=== PATIENT | female | born 1960 | race Caucasian/White ===

== ENCOUNTER 2017-09-28 17:22 | Emergency (ER) | payer OTHER ==
[~2017-09-28] VITALS: Ht 154.9 cm; Wt 77.2 kg
[~2017-09-28 17:22] MED LIST: LISI5TAB18 PO; METF850T PO
[2017-09-28 17:31] VITALS: BP 131/76
[2017-09-28] MEDS ORDERED: KETOROLAC 60 MG/2 ML VIAL IM ONE (18:05)
[2017-09-28 20:42] VITALS: BP 122/70
== END 2017-09-28 20:42 | disposition home or self-care (01) ==
LOC: MED 17:22
DX: M79.661 Pain in right lower leg (principal)
CPT/HCPCS: 73590; 93971; 96372; 99284; J1885; Q0092

== ENCOUNTER 2018-07-10 14:25 | Observation (INO) | payer BC, OTHER ==
[~2018-07-10] VITALS: Ht 162.6 cm; Wt 77.1 kg
--- NOTE | 2018-07-10 14:36 | NUR ---
PT TO ER BED 9
[2018-07-10 14:40] VITALS: BP 141/68
--- NOTE | 2018-07-10 14:58 | NUR ---
PATIENT PRESENTS TO ED WITH ACCOMPANIED BY SPOUSE C/O INTERMITTENT PALPITATION AND GENERALIZED WEAKNESS X TODAY ADDS HAS BEEN FEELING ANXIOUS DENIES PAIN, DENIES SOB, DENIES N/V/D . SKIN IS PINK/WARM/DRY; AAOX4 WITH EVEN AND STEADY GAIT; LUNGS CLEAR BL; HR EVEN AND REGULAR; PT DENIES ANY FEVER, SOB, OR COUGH AT THIS TIME; PATIENT STATES PAIN OF 0/10 AT THIS TIME; VSS; PATIENT POSITIONED FOR COMFORT; HOB ELEVATED; BEDRAILS UP X2; BED DOWN. ER MD MADE AWARE OF PT STATUS.
[2018-07-10] MEDS ORDERED: KETOROLAC 30 MG/ML VIAL IVP ONE (15:05)
[2018-07-10] MEDS ORDERED: NACL 0.9% 1,000 ML IV ONE (15:05)
[2018-07-10] MEDS ORDERED: LORazepam 2 MG/ML VIAL IVP ONE (15:05)
[2018-07-10] MEDS ORDERED: METOCLOPRAMIDE 10 MG/2 ML INJ VIAL IVP ONE (15:05)
--- NOTE | 2018-07-10 15:13 | NUR ---
CXR AT BEDSIDE
[2018-07-10 15:44] LABS: BASOPHILS % (AUTO) 0.6 % (0.0-2.0); EOSINOPHILS # (AUTO) 0.1 K/uL (0-0.4); HEMATOCRIT 41.3 % (36-48); HEMOGLOBIN 14.3 g/dL (12.0-16.0); LYMPHOCYTES # (AUTO) 1.9 K/uL (2.5-16.5); LYMPHOCYTES % (AUTO) 29.7 % (20.5-51.1); MEAN CORPUSCULAR HEMOGLOBIN 31 pg (27-31); MEAN CORPUSCULAR HGB CONC 35 g/dL (33-37); MEAN CORPUSCULAR VOLUME 90.3 fL (80-94); MONOCYTES # (AUTO) 0.4 K/uL (0.8-1.0); MONOCYTES % (AUTO) 5.8 % (1.7-9.3); NEUTROPHILS # (AUTO) 3.9 K/uL (1.8-7.7); NEUTROPHILS % (AUTO) 62.9 % (42.2-75.2); PLATELET COUNT (AUTO) 206 K/uL (140-450); RED BLOOD CELL COUNT(AUTO) 4.58 MIL/uL (4.20-5.40); WHITE BLOOD COUNT (AUTO) 6.3 K/uL (4.8-10.8)
--- NOTE | 2018-07-10 15:56 | NUR ---
IV 20 GA RT HAND DONE, BLOOD SENT TO LAB, IVP/IVF GIVEN-NADR AT THIS TIME. FAMILY AT BEDSIDE, NSR W/O ECT, VSS, PT STABLE AT THIS TIME.
[2018-07-10 15:59] LABS: ANION GAP 11.4 (8-16); CARBON DIOXIDE 27.2 mmol/L (21-32); CREATININE 0.9 mg/dL (0.6-1.3); POTASSIUM 3.6 mmol/L (3.5-5.1)
[2018-07-10 16:04] LABS: ALBUMIN 3.4 g/dL (3.4-5.0); TOTAL BILIRUBIN 0.3 mg/dL (0.0-1.0)
[2018-07-10 16:05] LABS: BILIRUBIN,URINE NEGATIVE (NEGATIVE); BLOOD, URINE TRACE-L (NEGATIVE); COLOR,URINE YELLOW (YELLOW); LEUKOCYTE ESTERASE ,URINE 1+ (NEGATIVE); NITRITE, URINE NEGATIVE (NEGATIVE); UGLUCOSE 2+ (NEGATIVE)
[2018-07-10 16:07] LABS: APPEARANCE,URINE HAZY (CLEAR)
[2018-07-10 16:09] LABS: BARBITURATE, URINE NEG. ng/ml (NEG <=200); BENZODIAZEPINE, URINE NEG. ng/mL (NEG <=200); CANNABINOID, URINE NEG. ng/mL (NEG <=50); COCAINE, URINE NEG. ng/mL (NEG <=300); OPIATE, URINE NEG. ng/mL (NEG <=2000); PHENCYCLIDINE SCREEN,URINE NEG. ng/mL (NEG <=25)
[2018-07-10 16:16] LABS: PROTHROMBIN TIME 9.3 secs (10.8-13.4)
[2018-07-10 16:19] LABS: RBC,URINE 0-5 /HPF (0-5)
--- NOTE | 2018-07-10 16:30 | NUR ---
NO SOB OR ACUTE RESPIRATORY DISTTRESS NOTED. PT DENIES CHEST PAIN, DIZZINESS. DENIES NAUSEA, VOMITING. AMBULATED TO RESTROOM.
--- NOTE | 2018-07-10 16:40 | NUR ---
AMBULATED TO ROOM
[2018-07-10] MEDS ORDERED: DEXTROSE 50% 50 ML SYR IVP PRN ×2 (18:05→19:35)
[2018-07-10] MEDS ORDERED: HYDROcodone/APAP 5/325 MG 1 TAB TAB PO PRN (18:05)
[2018-07-10] MEDS ORDERED: MORPHINE SULFATE 2 MG/ML SYR IVP PRN (18:05)
[2018-07-10] MEDS ORDERED: INSULIN LISPRO SLIDING SCALE 100 UNITS/ML VIAL SUBQ PRN (18:05)
[2018-07-10] MEDS ORDERED: ONDANSETRON 4 MG/2 ML VIAL IVP PRN (18:05)
[2018-07-10] MEDS ORDERED: ZOLPIDEM 5 MG TAB PO PRN ×2 (18:05→19:45)
[2018-07-10] MEDS ORDERED: LORazepam 2 MG/ML VIAL IVP PRN (18:05)
[2018-07-10] MEDS ORDERED: ALUMINUM HYD/MAG/SIMETHICONE 30 ML UDC PO PRN (18:05)
[2018-07-10] MEDS ORDERED: NITROGLYCERIN 0.4 MG TAB SL PRN (18:05)
[2018-07-10] MEDS ORDERED: ACETAMINOPHEN 325 MG TAB PO PRN (18:05)
--- NOTE | 2018-07-10 18:18 | NUR ---
PT APPEARS TO BE RELAXED, RESTING IN BED. DENIES ANY NAUSEA OR VOMITING. DENIES ANY CHEST PAIN OR SOB. VS WNL.
--- NOTE | 2018-07-10 18:19 | NUR ---
Patient will be admitted to care of Dr. Hicks. Admited to Tele unit. Will go to room 105B. Belongings list completed.
--- NOTE | 2018-07-10 18:59 | NUR ---
PT TRANSFERRED TO TELE UNIT VIA GURNEY TO ROOM 105B ON STABLE CONDITION. BELONGINGES TAKEN TO THE ROOM WITH PATIENT. REPORT GIVEN TO CHARGE NURSE NONI.
--- NOTE | 2018-07-10 19:30 | NUR ---
RECEIVED PT FROM NONI CESAR PT S[place] SPEAKER AAOX4 AMBULATORY IV ON LEFT AC INFUSING WELL ON TELMETRY SR MRSA NARES SCRREN TAKEN AND SENT TO LAB PT IS ORIENTED TO THE FLOOR CALL LIGHT WITHIN REACH
--- NOTE | 2018-07-10 19:45 | NUR ---
DR GORDON IN HERE AND SEE THE PT
[2018-07-10] MEDS ORDERED: MAG SULF 2000 MG/WATER PREMIX 50 ML IV PRN (19:50)
[2018-07-10 20:00] VITALS: BP 107/62
[2018-07-10] MEDS ORDERED: PNEUMOCOCCAL VACCINE 23 MCG/0.5 ML VIAL IMVAC SCH (20:40)
[2018-07-10] MEDS: BLOOD GLUCOSE MONITORING 1 DEV DEV FS SCH (21:00)
[2018-07-10] MEDS ORDERED: SIMVASTATIN 20 MG TAB PO SCH (21:00)
[2018-07-10] MEDS ORDERED: BLOOD GLUCOSE MONITORING 1 DEV DEV FS SCH (21:00)
[2018-07-10] MEDS: METOPROLOL 25 MG TAB PO SCH (21:00)
--- NOTE | 2018-07-10 21:00 | NUR ---
DR KATHERINE Nam IS HERE AND SEE THE PT ORDERS TO FOLLOW
[2018-07-10] MEDS: INSULIN LISPRO SLIDING SCALE 100 UNITS/ML VIAL SUBQ PRN (22:03)
[2018-07-10 23:50] LABS: CREATINE KINASE MB 0.7 ng/mL (0-3.6)
[2018-07-11] VITALS: BP 90/48
--- NOTE | 2018-07-11 | NUR ---
PT SLEEPING WELL NOT DISTRESS NOTED NOT SISGNS OF PAIN, ON TELEMETRY SB
--- NOTE | 2018-07-11 03:00 | NUR ---
PT IS ASSISTED TO THE RESTROOM VOIDING WELL DENIES ANY PAIN ON TELEMETRY SB
[2018-07-11 04:00] VITALS: BP 103/56
--- NOTE | 2018-07-11 05:18 | NUR ---
SPONGE BATH GIVEN LINEN CHANGED DENIES ANY CHEST PAIN OR DISCOMFORT
[2018-07-11] MEDS: BLOOD GLUCOSE MONITORING 1 DEV DEV FS SCH (07:02)
[2018-07-11] MEDS: INSULIN LISPRO SLIDING SCALE 100 UNITS/ML VIAL SUBQ PRN (07:02)
--- NOTE | 2018-07-11 07:02 | NUR ---
BLOOD GLUCOSE TEST 158 COVERAGE WITH 2 UNIST SUBQ HUMALOG FOLLOW PROTOCOL
--- NOTE | 2018-07-11 07:15 | NUR ---
REPORT RECEIVED FROM FREELANCE DIGITAL PROJECT MANAGER NURSE MERARI URIBE SLEEPING QUIETLY IN NAD,RESP EVEN UNLABORED ON RA, SKIN WARM DRY COLOR WNL, AROUSES EASILY, OX4, SPEAKS CLEARLY, DENIES PAIN OR DISCOMFORT, POC REVIEWED, ALL SAFETY MEASURES IN PLACE, NO IMMEDIATE NEEDS AT THIS TIME, WILL CONTINUE TO MONITOR.
--- NOTE | 2018-07-11 08:25 | NUR ---
PATIENT HAS BEEN SCREENED AND CATEGORIZED MODERATE NUTRITION RISK. PATIENT WILL BE SEEN WITHIN 3-5 DAYS OF ADMISSION. 07/13/18[address]
[2018-07-11 08:40] LABS: ALBUMIN 2.9 g/dL (3.4-5.0); ANION GAP 7.7 (8-16); CARBON DIOXIDE 31.3 mmol/L (21-32); CREATININE 0.8 mg/dL (0.6-1.3); TOTAL BILIRUBIN 0.6 mg/dL (0.0-1.0)
[2018-07-11] MEDS ORDERED: LISINOPRIL 5 MG TAB PO SCH (09:00)
[2018-07-11] MEDS: METOPROLOL 25 MG TAB PO SCH (09:00)
[2018-07-11] MEDS ORDERED: ENOXAPARIN 40 MG/0.4 ML SYR SUBQ SCH (09:00)
[2018-07-11] MEDS ORDERED: MENTHOL/METHYL 10%-15% 114 GM TUBE TP SCH (09:00)
[2018-07-11] MEDS ORDERED: metFORMIN 850 MG TAB PO SCH (09:00)
[2018-07-11] MEDS ORDERED: ASPIRIN 81 MG TAB.CHEW PO SCH (09:00)
[2018-07-11] MEDS ORDERED: NAPROXEN 500 MG TAB PO SCH (09:00)
[2018-07-11] MEDS ORDERED: NAPR-1717 PO (09:22)
--- NOTE | 2018-07-11 10:09 | NUR ---
FLU AND PNEUMO VACCINES GIVEN PER PT'S REQUEST AND ORDER.
--- NOTE | 2018-07-11 10:20 | NUR ---
DC INSTRUCTION AND RX INFO GIVEN AND EXPLAINED TO PT AND DAUGHTER, PT OK'D DAUGHTER TO TRANSLATE, PT AND DAUGHTER VERBALIZED FULL UNDERSTANDING, IV DC'D, CATH TIP INTACT, NO REACTIONS NOTED FROM VACC, PT UP OUT OF BED AMBULATES WITH STEADY GAIT, DC HOME NOW WITH DAUGHTERS.
[2018-07-11 12:00] VITALS: BP 114/59
[2018-07-12] MEDS ORDERED: INFLUENZA VIRUS VACCINE QUAD 0.5 ML SYR IMVAC PRN (09:00)
== END 2018-07-11 10:20 | disposition home or self-care (01) ==
LOC: MED 14:25 → MTU 18:05
PROVIDERS: ADMIT Hospitalist; ATTEND Hospitalist
DX: R07.89 Other chest pain (principal); I10 Essential (primary) hypertension; E78.5 Hyperlipidemia, unspecified; R00.2 Palpitations; R42 Dizziness and giddiness; R55 Syncope and collapse; R73.03 Prediabetes; G47.00 Insomnia, unspecified; F43.9 Reaction to severe stress, unspecified; M79.18 Myalgia, other site; Z23 Encounter for immunization
CPT/HCPCS: 36415; 71045; 80053; 80305; 81001; 82550; 82553; 82948; 83036; 83735; 83880; 84443; 84484; 85025; 85379; 85610; 85730; 87081; 87086; 90471; 90472; 90686; 90732; 93005; 96361; 96372; 96374; 96375; 99285; G0378; J1650; J1815; J1885; J2060; J2765; Q0092; 99284

== ENCOUNTER 2019-03-14 17:53 | Emergency (ER) | payer BC, OTHER ==
[~2019-03-14] VITALS: Ht 157.5 cm; Wt 69.4 kg
[~2019-03-14 17:53] MED LIST changes: +NAPR-1717 PO
[2019-03-14 18:16] VITALS: BP 123/76
--- NOTE | 2019-03-14 18:21 | NUR ---
PT TO [facility]. VS WNL. PT ALERT AND AWAKE
--- NOTE | 2019-03-14 19:34 | NUR ---
PT AMBULATED TO BED 8
[2019-03-14 19:39] VITALS: BP 113/64
--- NOTE | 2019-03-14 19:39 | NUR ---
58 Y/O F PRESENTS TO ED WITH C/O SUDDEN ONSET OF NECK PAIN X3 DAYS. PT DENIES ACCIDENT OR INJURY. 8/10 PAIN, ACHING. NON-RADITING.PT SELF MEDICATED WITH IBUPROFEN, NO RELIEF OF SYMPTOMS. +FULL ROM TO NECK. ERMD AWARE OF PT STATUS. WILL CONTINUE TO MONITOR.
--- NOTE | 2019-03-14 21:30 | NUR ---
Patient discharged with v/s stable. Written and verbal after care instructions given and explained. Patient alert, oriented and verbalized understanding of instructions. Ambulatory with steady gait. All questions addressed prior to discharge. ID band removed. Patient advised to follow up with PMD. Rx of valium and naprosyn given. Patient educated on indication of medication including possible reaction and side effects. Opportunity to ask questions provided and answered.
== END 2019-03-14 21:30 | disposition home or self-care (01) ==
LOC: MED 17:53
DX: S16.1XXA Strain of muscle, fascia and tendon at neck level, initial encounter (principal); I10 Essential (primary) hypertension; E11.9 Type 2 diabetes mellitus without complications; Z79.899 Other long term (current) drug therapy; Z90.49 Acquired absence of other specified parts of digestive tract; Z79.84 Long term (current) use of oral hypoglycemic drugs
CPT/HCPCS: 99283

== ENCOUNTER 2020-01-10 01:34 | Emergency (ER) | payer SELFPAY ==
[~2020-01-10] VITALS: Ht 154.9 cm; Wt 64.9 kg
[2020-01-10 01:39] VITALS: BP 120/77
--- NOTE | 2020-01-10 01:41 | NUR ---
ambulated to bed 7 with steady gait Addendum: 01/10/20 at 0142 by [facility] room 6
--- NOTE | 2020-01-10 01:53 | NUR ---
Dr. Castellanos at bedside.
[2020-01-10] MEDS ORDERED: predniSONE 20 MG TAB PO ONE (02:00)
[2020-01-10] MEDS ORDERED: diphenhydrAMINE 50 MG CAP PO ONE (02:00)
--- NOTE | 2020-01-10 02:12 | NUR ---
PT DEVELOPED A RASH TO HER BODY X 2 DAYS AGO. PT HAS SCATTERED RED DOTS TO HER SKIN, ALSO C/O ITCHING. SKIN INTACT, NO WELTS, BLISTERS, OR SWELLING NOTED. AFEBRILE, NO SOB OR COUGH, NO N/V/D. PT UNAWARE OF WHAT CAUSED HER SYSTEMS. BED IN LOWEST POSITION AND SIDERAIL UP X 1. NKA HX - DM, HTN, HIGH CHOLESTEROL
[2020-01-10 02:35] VITALS: BP 120/77
--- NOTE | 2020-01-10 02:35 | NUR ---
Patient discharged with v/s stable. Written and verbal after care instructions given and explained. Patient alert, oriented and verbalized understanding of instructions. Ambulatory with steady gait. All questions addressed prior to discharge. ID band removed. Patient advised to follow up with PMD. Rx of DIPHENHYDRAMINE AND PREDNISONE given. Patient educated on indication of medication including possible reaction and side effects. Opportunity to ask questions provided and answered.
== END 2020-01-10 02:35 | disposition home or self-care (01) ==
LOC: MED 01:34
DX: L50.9 Urticaria, unspecified (principal); E11.9 Type 2 diabetes mellitus without complications; I10 Essential (primary) hypertension; Z79.84 Long term (current) use of oral hypoglycemic drugs; Z79.899 Other long term (current) drug therapy
CPT/HCPCS: 99283; J7512; Q0163

== ENCOUNTER 2020-01-20 13:39 | Emergency (ER) | payer OTHER ==
[~2020-01-20] VITALS: Ht 162.6 cm; Wt 65.8 kg
[2020-01-20 13:45] VITALS: BP 105/66
[2020-01-20] MEDS ORDERED: NACL 0.9% 1,000 ML IV SCH (13:58)
--- NOTE | 2020-01-20 13:58 | NUR ---
PT AMBULATED TO BED 1 WITH STEADY GAIT.
--- NOTE | 2020-01-20 13:59 | NUR ---
PT 59 Y/O FEMALE BIB SELF FROM HOME FOR C/O HIGH BLOOD SUGAR. PT A&O X4. VSS. DENIES PAIN. PT STATES SHE HAS BEEN URINATING FREQUENTLY. PT DENIES N/V/D. RESPIRATIONS ARE EVEN AND UNLABORED. SKIN IS WARM AND DRY TO TOUCH. MEDHX: HTN, DM TYPE II, HYPERLIPIDEMIA ALLERGIES: NKA
--- NOTE | 2020-01-20 14:00 | NUR ---
IV PLACED IN R AC 20 G. LABS COLLECTED, UA COLLECTED, AND GIVEN TO CORE WINDER MACHINE OPERATOR.
--- NOTE | 2020-01-20 14:05 | NUR ---
RT AT [facility]. ABG BEING COLLECTED.
[2020-01-20 14:20] LABS: BASOPHILS # (AUTO) 0.1 K/uL (0.00-0.22); BASOPHILS % (AUTO) 0.9 % (0.0-2.0); EOSINOPHILS % (AUTO) 0.6 % (0.0-4.0); HEMATOCRIT 40.8 % (36-48); HEMOGLOBIN 14.2 g/dL (12.0-16.0); LYMPHOCYTES # (AUTO) 1.8 K/uL (2.5-16.5); LYMPHOCYTES % (AUTO) 29.6 % (20.5-51.1); MEAN CORPUSCULAR HEMOGLOBIN 32 pg (27-31); MEAN CORPUSCULAR HGB CONC 35 g/dL (33-37); MEAN CORPUSCULAR VOLUME 90.1 fL (80-94); MONOCYTES # (AUTO) 0.3 K/uL (0.8-1.0); MONOCYTES % (AUTO) 5.3 % (1.7-9.3); NEUTROPHILS # (AUTO) 3.9 K/uL (1.8-7.7); NEUTROPHILS % (AUTO) 63.6 % (42.2-75.2); PLATELET COUNT (AUTO) 187 K/uL (140-450); RED BLOOD CELL COUNT(AUTO) 4.53 MIL/uL (4.20-5.40); RED CELL DISTRIBUTION WIDTH 12.3 % (11.6-13.7); WHITE BLOOD COUNT (AUTO) 6.1 K/uL (4.8-10.8)
[2020-01-20 14:35] LABS: ALBUMIN 3.4 g/dL (3.4-5.0); ANION GAP 12.1 (8-16); CARBON DIOXIDE 25.7 mmol/L (21-32); CREATININE 0.9 mg/dL (0.6-1.3); POTASSIUM 3.8 mmol/L (3.5-5.1); TOTAL BILIRUBIN 0.6 mg/dL (0.0-1.0)
[2020-01-20] MEDS ORDERED: INSULIN REGULAR, HUMAN 100 UNIT/ML VIAL IVP ONE (14:40)
[2020-01-20 14:44] LABS: APPEARANCE,URINE CLEAR (CLEAR); BILIRUBIN,URINE NEGATIVE (NEGATIVE); BLOOD, URINE NEGATIVE (NEGATIVE); COLOR,URINE YELLOW (YELLOW); LEUKOCYTE ESTERASE ,URINE NEGATIVE (NEGATIVE); NITRITE, URINE NEGATIVE (NEGATIVE); UGLUCOSE 3+ (NEGATIVE)
[2020-01-20] MEDS ORDERED: ACET-2619 PO (15:32)
[2020-01-20] MEDS ORDERED: ASPI-1822 PO (15:32)
[2020-01-20] MEDS ORDERED: AZIT250T3 PO (15:34)
[2020-01-20] MEDS ORDERED: DOCU-2 PO (15:34)
[2020-01-20] MEDS ORDERED: GLIP5TAB4 PO (15:35)
--- NOTE | 2020-01-20 15:49 | NUR ---
dr mayer informed and aware.
[2020-01-20 16:48] VITALS: BP 105/66
--- NOTE | 2020-01-20 16:49 | NUR ---
Patient discharged with v/s stable. Written and verbal after care instructions given and explained. Patient verbalized understanding. Ambulatory with steady gait. All questions addressed prior to discharge. Advised to follow up with PMD.
== END 2020-01-20 16:49 | disposition home or self-care (01) ==
LOC: MED 13:39
DX: E11.65 Type 2 diabetes mellitus with hyperglycemia (principal); I10 Essential (primary) hypertension; E78.5 Hyperlipidemia, unspecified; Z79.84 Long term (current) use of oral hypoglycemic drugs; Z79.899 Other long term (current) drug therapy; Z79.82 Long term (current) use of aspirin; Z90.49 Acquired absence of other specified parts of digestive tract
CPT/HCPCS: 36415; 36600; 80053; 81003; 82803; 83690; 85025; 96374; 99283; J1815

== ENCOUNTER 2020-03-03 10:13 | Emergency (ER) | payer OTHER ==
[~2020-03-03] VITALS: Ht 154.9 cm; Wt 79.4 kg
[~2020-03-03 10:13] MED LIST changes: +ACET-2619 PO; +ASPI-1822 PO; +AZIT250T3 PO; +DOCU-2 PO; +GLIP5TAB4 PO
[2020-03-03 10:21] VITALS: BP 118/71
[2020-03-03] MEDS: NACL 0.9% 1,000 ML IV ONE (10:53)
[2020-03-03] MEDS: PROCHLORPERAZINE 10 MG/2 ML VIAL IVP ONE (10:54)
[2020-03-03] MEDS: diphenhydrAMINE 50 MG/ML VIAL IVP ONE (10:54)
[2020-03-03] MEDS: KETOROLAC 30 MG/ML VIAL IVP ONE (10:55)
[2020-03-03 11:52] VITALS: BP 125/45
== END 2020-03-03 11:52 | disposition home or self-care (01) ==
LOC: MED 10:13
DX: G43.909 Migraine, unspecified, not intractable, without status migrainosus (principal); E11.9 Type 2 diabetes mellitus without complications; I10 Essential (primary) hypertension; Z79.899 Other long term (current) drug therapy
CPT/HCPCS: 82948; 96361; 96374; 96375; 99284; J0780; J1200; J1885; J7030

== ENCOUNTER 2021-06-04 08:39 | Emergency (ER) | payer OTHER ==
[~2021-06-04] VITALS: Ht 157.5 cm; Wt 67.6 kg
[~2021-06-04 08:39] MED LIST changes: +GLIP5TAB14 PO; -GLIP5TAB4 PO
[2021-06-04 08:53] VITALS: BP 135/75
--- NOTE | 2021-06-04 08:56 | NUR ---
PT SENT TO LOBBY
[2021-06-04] MEDS ORDERED: ALUMINUM HYD/MAG/SIMETHICONE 30 ML UDC PO ONE (09:55)
[2021-06-04] MEDS ORDERED: FAMOTIDINE 20 MG TAB PO ONE (09:55)
--- NOTE | 2021-06-04 10:04 | NUR ---
60/F PRESENTS TO ED WITH C/O EPIGASTRIC PAIN SINCE LAST NIGHT, STATES PAIN CAME ON SUDDENLY AND WORSENED THROUGHOUT THE NIGHT. PATIENT REPORTS TAKING ADVIL WITH NO RELIEF, DENIES N/V/D, DYSURIA OR CHEST PAIN.
[2021-06-04 10:08] LABS: BASOPHILS % (AUTO) 0.7 % (0.0-2.0); EOSINOPHILS # (AUTO) 0.1 K/uL (0-0.4); EOSINOPHILS % (AUTO) 1.5 % (0.0-4.0); HEMATOCRIT 39.5 % (36-48); LYMPHOCYTES # (AUTO) 1.7 K/uL (2.5-16.5); LYMPHOCYTES % (AUTO) 35.5 % (20.5-51.1); MEAN CORPUSCULAR HEMOGLOBIN 31 pg (27-31); MEAN CORPUSCULAR HGB CONC 36 g/dL (33-37); MEAN CORPUSCULAR VOLUME 87.1 fL (80-94); MONOCYTES # (AUTO) 0.2 K/uL (0.8-1.0); MONOCYTES % (AUTO) 5.1 % (1.7-9.3); NEUTROPHILS # (AUTO) 2.8 K/uL (1.8-7.7); NEUTROPHILS % (AUTO) 57.2 % (42.2-75.2); PLATELET COUNT (AUTO) 234 K/uL (140-450); RED BLOOD CELL COUNT(AUTO) 4.53 MIL/uL (4.20-5.40); RED CELL DISTRIBUTION WIDTH 12.3 % (11.6-13.7); WHITE BLOOD COUNT (AUTO) 4.8 K/uL (4.8-10.8)
[2021-06-04 10:46] LABS: ALBUMIN 3.5 g/dL (3.4-5.0); CARBON DIOXIDE 30.1 mmol/L (21-32); CREATININE 0.6 mg/dL (0.6-1.3); POTASSIUM 4.1 mmol/L (3.5-5.1); TOTAL BILIRUBIN 0.5 mg/dL (0.0-1.0)
[2021-06-04] MEDS ORDERED: FAMO-90 PO (11:32)
[2021-06-04] MEDS ORDERED: ALUM355S59 PO (11:32)
[2021-06-04 11:50] VITALS: BP 135/75
--- NOTE | 2021-06-04 11:51 | NUR ---
Patient discharged with v/s stable. Written and verbal after care instructions ABOUT GASTRITIS given and explained. Patient alert, oriented and verbalized understanding of instructions. Ambulatory with steady gait. All questions addressed prior to discharge. ID band removed. Patient advised to follow up with PMD. Rx of MAALOX ADVANCED AND PEPCID given. Patient educated on indication of medication including possible reaction and side effects. Opportunity to ask questions provided and answered.
== END 2021-06-04 11:51 | disposition home or self-care (01) ==
LOC: MED 08:39
DX: R10.13 Epigastric pain (principal); E11.9 Type 2 diabetes mellitus without complications; I10 Essential (primary) hypertension; Z79.84 Long term (current) use of oral hypoglycemic drugs; Z90.49 Acquired absence of other specified parts of digestive tract; Z79.82 Long term (current) use of aspirin; Z79.899 Other long term (current) drug therapy
CPT/HCPCS: 36415; 80053; 81002; 81025; 84484; 85025; 93005; 99284

== ENCOUNTER 2021-10-16 09:45 | Emergency (ER) | payer OTHER ==
[~2021-10-16] VITALS: Ht 154.9 cm; Wt 67.1 kg
[~2021-10-16 09:45] MED LIST changes: +ALUM355S59 PO; +FAMO-90 PO; +METF-713 PO; -METF850T PO
[2021-10-16 09:55] VITALS: BP 122/74
--- NOTE | 2021-10-16 10:01 | NUR ---
Mendy dawson in [facility] - 10/16/21 at 1002 by [facility] per md mayer, pt left without paperwork
[2021-10-16] MEDS ORDERED: KETOROLAC 60 MG/2 ML VIAL IM ONE (10:10)
--- NOTE | 2021-10-16 10:24 | NUR ---
61 y/o female bib self, pt presents to ed with c/o epigastric pain with n&v for 1 week. denies diarrhea, loss of appetite. skin is pink/warm/dry. a&o x4, turkmen speaking with even and steady gait. lungs clear bl, heart rate even and regular. pt denies dysuria, hematuria, urinary frequency or retention, or anyone sick in the household with the same symptoms. pt denies any fever, sob, or cough at this time. pt states pain is 6/10 at this time, describes as pressure and "heavy". vss. patient positioned for comfort. hob elevated. bed down. ermd made aware of pt. pmh: dm2, htn nka med: denies
[2021-10-16] MEDS ORDERED: DICYCLOMINE HCL LIQUID 20 MG, ALUMINUM HYD/MAG/SIMETHICONE 30 ML, LIDOCAINE VISCOUS 2% ... PO ONE ×3 (11:05)
[2021-10-16] MEDS ORDERED: DICYCLOMINE HCL LIQUID 10 MG/5 ML UDC ONE (11:07)
[2021-10-16] MEDS ORDERED: ALUMINUM HYD/MAG/SIMETHICONE 30 ML UDC ONE (11:07)
[2021-10-16] MEDS ORDERED: OMEP40EC24 PO (11:15)
[2021-10-16] MEDS ORDERED: IBUP-2213 PO (11:15)
[2021-10-16] MEDS ORDERED: ONDA8TAB87 PO (11:15)
[2021-10-16] MEDS ORDERED: ACET-8386 PO (11:15)
--- NOTE | 2021-10-16 11:25 | NUR ---
Patient appears to be resting comfortably in bed. Vital Signs within normal limits. Respirations even and unlabored.
[2021-10-16 11:30] VITALS: BP 122/74
--- NOTE | 2021-10-16 11:30 | NUR ---
Patient discharged with v/s stable. Written and verbal after care instructions given and explained. Patient alert, oriented and verbalized understanding of instructions. Ambulatory with steady gait. All questions addressed prior to discharge. ID band removed. Patient advised to follow up with PMD. Rx of ibuprofen, hydrocodone, omeprazole, ondansetron (sent) given. Patient educated on indication of medication including possible reaction and side effects. Opportunity to ask questions provided and answered. work note given
== END 2021-10-16 11:30 | disposition home or self-care (01) ==
LOC: MED 09:45
DX: R10.13 Epigastric pain (principal); E11.9 Type 2 diabetes mellitus without complications; I10 Essential (primary) hypertension; Z79.4 Long term (current) use of insulin
CPT/HCPCS: 81002; 96372; 99283; J1885

== ENCOUNTER 2023-03-13 17:15 | Emergency (ER) | payer OTHER ==
[~2023-03-13] VITALS: Ht 162.6 cm; Wt 63.5 kg
[~2023-03-13 17:15] MED LIST changes: +ACET-8905 PO; +IBUP-2213 PO; +OMEP40EC24 PO; +ONDA8TAB87 PO
[2023-03-13 17:36] VITALS: BP 139/61; PULSE 77; RESP 18; O2SAT 98
[2023-03-13 19:17] LABS: BASOPHILS % (AUTO) 0.5 % (0.0-2.0); EOSINOPHILS # (AUTO) 0.1 K/uL (0-0.4); EOSINOPHILS % (AUTO) 2.3 % (0.0-4.0); HEMATOCRIT 36.6 % (36-48); HEMOGLOBIN 12.6 g/dL (12.0-16.0); LYMPHOCYTES # (AUTO) 1.8 K/uL (2.5-16.5); LYMPHOCYTES % (AUTO) 43.1 % (20.5-51.1); MEAN CORPUSCULAR HEMOGLOBIN 31 pg (27-31); MEAN CORPUSCULAR HGB CONC 35 g/dL (33-37); MEAN CORPUSCULAR VOLUME 88.6 fL (80-94); MONOCYTES # (AUTO) 0.4 K/uL (0.8-1.0); NEUTROPHILS # (AUTO) 1.8 K/uL (1.8-7.7); NEUTROPHILS % (AUTO) 44.1 % (42.2-75.2); PLATELET COUNT (AUTO) 185 K/uL (140-450); RED BLOOD CELL COUNT(AUTO) 4.13 MIL/uL (4.20-5.40); RED CELL DISTRIBUTION WIDTH 12.5 % (11.6-13.7); WHITE BLOOD COUNT (AUTO) 4.2 K/uL (4.8-10.8)
[2023-03-13 19:30] VITALS: BP 103/54; PULSE 73; RESP 15; O2SAT 98
[2023-03-13 19:34] LABS: INR 0.96 (0.8-1.2); PROTHROMBIN TIME 10.1 secs (10.8-13.4)
[2023-03-13 19:36] LABS: ALBUMIN 3.1 g/dL (3.4-5.0); ANION GAP 9.7 (8-16); CALCIUM 8.6 mg/dL (8.5-10.1); CARBON DIOXIDE 29.9 mmol/L (21-32); CREATININE 0.9 mg/dL (0.6-1.3); POTASSIUM 3.6 mmol/L (3.5-5.1); TOTAL BILIRUBIN 0.3 mg/dL (0.0-1.0); TOTAL PROTEIN, SERUM 7.4 g/dL (6.4-8.2)
[2023-03-13] MEDS ORDERED: KETOROLAC 30 MG/ML VIAL IVP ONE (21:45)
[2023-03-13] MEDS ORDERED: ACETAMINOPHEN EXTRA STRENGTH 500 MG TAB PO ONE (21:45)
[2023-03-13] MEDS ORDERED: KETOROLAC 15 MG/ML VIAL ONE (21:53)
[2023-03-13] MEDS ORDERED: ACETAMINOPHEN EXTRA STRENGTH 500 MG TAB ONE (21:53)
== END 2023-03-13 22:14 | disposition home or self-care (01) ==
LOC: MED 18:50
DX: R07.89 Other chest pain (principal); E11.9 Type 2 diabetes mellitus without complications; I10 Essential (primary) hypertension; E78.5 Hyperlipidemia, unspecified; Z79.899 Other long term (current) drug therapy; Z79.1 Long term (current) use of non-steroidal anti-inflammatories (NSAID); Z79.82 Long term (current) use of aspirin
CPT/HCPCS: 36415; 71045; 80053; 83880; 84484; 85025; 85610; 85730; 93005; 96372; 99285; J1885

== ENCOUNTER 2023-11-08 01:42 | Emergency (ER) | payer OTHER ==
[~2023-11-08] VITALS: Ht 157.5 cm; Wt 76.2 kg
[~2023-11-08 01:42] MED LIST changes: -GLIP5TAB14 PO; +GLIP5TAB24 PO
[2023-11-08 02:23] VITALS: BP 96/65; PULSE 88; RESP 16; TEMP 96.4; O2SAT 99
[2023-11-08] MEDS ORDERED: ALUMINUM HYD/MAG/SIMETHICONE 30 ML UDC ONE ×2 (04:03→04:16)
[2023-11-08] MEDS ORDERED: DICYCLOMINE HCL LIQUID 10 MG/5 ML UDC ONE (04:03)
[2023-11-08 04:30] VITALS: O2SAT 98
[2023-11-08] MEDS: DICYCLOMINE HCL LIQUID 20 MG, ALUMINUM HYD/MAG/SIMETHICONE 30 ML, LIDOCAINE VISCOUS 2% ... PO ONE (04:35)
[2023-11-08] MEDS: FAMOTIDINE 20 MG TAB PO ONE (04:37)
[2023-11-08 05:22] LABS: BASOPHILS % (AUTO) 0.1 % (0.0-2.0); EOSINOPHILS % (AUTO) 0.3 % (0.0-4.0); HEMATOCRIT 40.6 % (36-48); HEMOGLOBIN 13.9 g/dL (12.0-16.0); LYMPHOCYTES # (AUTO) 0.6 K/uL (2.5-16.5); LYMPHOCYTES % (AUTO) 13.8 % (20.5-51.1); MEAN CORPUSCULAR HEMOGLOBIN 31 pg (27-31); MEAN CORPUSCULAR HGB CONC 34 g/dL (33-37); MEAN CORPUSCULAR VOLUME 90.1 fL (80-94); MONOCYTES # (AUTO) 0.3 K/uL (0.8-1.0); MONOCYTES % (AUTO) 6.3 % (1.7-9.3); NEUTROPHILS # (AUTO) 3.7 K/uL (1.8-7.7); NEUTROPHILS % (AUTO) 79.5 % (42.2-75.2); PLATELET COUNT (AUTO) 171 K/uL (140-450); RED BLOOD CELL COUNT(AUTO) 4.51 MIL/uL (4.20-5.40); RED CELL DISTRIBUTION WIDTH 12.5 % (11.6-13.7); WHITE BLOOD COUNT (AUTO) 4.6 K/uL (4.8-10.8)
[2023-11-08 05:51] LABS: ANION GAP 12.2 (8-16); CALCIUM 7.8 mg/dL (8.5-10.1); CARBON DIOXIDE 26.8 mmol/L (21-32); CREATININE 0.8 mg/dL (0.6-1.3)
[2023-11-08 05:57] LABS: ALBUMIN 3.5 g/dL (3.4-5.0); BILIRUBIN,DIRECT 0.2 mg/dL (0.0-0.3); TOTAL BILIRUBIN 0.8 mg/dL (0.0-1.0); TOTAL PROTEIN, SERUM 7.8 g/dL (6.4-8.2)
[2023-11-08] MEDS ORDERED: FAMO-92 PO (05:57)
== END 2023-11-08 06:35 | disposition home or self-care (01) ==
LOC: MED 01:42
DX: K21.9 Gastro-esophageal reflux disease without esophagitis (principal); E11.9 Type 2 diabetes mellitus without complications; I10 Essential (primary) hypertension; Z79.84 Long term (current) use of oral hypoglycemic drugs; Z79.82 Long term (current) use of aspirin; Z79.1 Long term (current) use of non-steroidal anti-inflammatories (NSAID); Z79.899 Other long term (current) drug therapy
CPT/HCPCS: 36415; 80048; 80076; 83690; 85025; 99284